=== PATIENT | male | born 1985 | race Caucasian/White ===

== ENCOUNTER 2018-07-20 14:09 | Outpatient (RCR) | payer OTHER ==
[~2018-07-20 14:09] MED LIST: DOXYCYCLINE 10100 MG PO; NORCO 325 MG-51 TAB PO; PROCTOFOAM-HC 11 FOA RC; PROZAC 20MG20 MG PO
== END 2018-08-17 10:24 | disposition home or self-care (01) ==
LOC: WSOH 14:09
DX: S13.4XXA Sprain of ligaments of cervical spine, initial encounter (principal); S33.6XXA Sprain of sacroiliac joint, initial encounter; S33.5XXA Sprain of ligaments of lumbar spine, initial encounter; Z88.0 Allergy status to penicillin; X50.0XXA Overexertion from strenuous movement or load, initial encounter; Y92.59 Other trade areas as the place of occurrence of the external cause; Y99.0 Civilian activity done for income or pay; F32.9 Major depressive disorder, single episode, unspecified; F41.9 Anxiety disorder, unspecified

== ENCOUNTER 2021-09-26 15:31 | Emergency (ER) | payer SELFPAY ==
[~2021-09-26] VITALS: Ht 167.6 cm; Wt 79.5 kg
[2021-09-26 16:15] LABS: COLLECTION METHOD CLEAN CATCH
[2021-09-26 16:24] LABS: SQUAMOUS EPITHELIAL 0-2 /hpf (0-10); URINE BACTERIA None Seen /hpf (NONE SEEN); URINE RBC 0-2 /hpf (0-2)
[2021-09-26 16:25] LABS: PH 5 (5-8); URINE APPEARANCE Clear (CLEAR/HAZY); URINE BLOOD Negative (NEGATIVE); URINE COLOR Yellow (YELLOW); URINE GLUCOSE Negative (NEGATIVE); URINE KETONE Negative (NEGATIVE); URINE NITRATE Negative (NEGATIVE); URINE PROTEIN(semi-quant) Negative (NEGATIVE); URINE UROBILINOGEN Negative (NEGATIVE)
[2021-09-26 16:37] LABS: BASO % 0.3 % (0.0-2.0); EOS # 0.1 K/mm3 (0.0-0.7); EOS % 1.7 % (0.0-4.0); GRAN # 5.2 K/mm3 (1.4-6.5); GRAN % 78.4 % (42.2-75.2); HEMATOCRIT 44.5 % (42.0-52.0); HEMOGLOBIN 15.7 g/dl (13.5-18.0); LYMPH # 0.7 K/mm3 (1.2-3.4); LYMPH % 10.6 % (20.0-51.0); MEAN CELL VOLUME 87 fl (80.0-100.0); MEAN CORPUSCULAR HEMOGLOBIN 31 pg (27-31); MEAN CORPUSCULAR HGB CONC 35 g/dl (33.0-37.0); MEAN PLATELET VOLUME 8.4 fl (7.4-10.4); MONO # 0.6 K/mm3 (0.1-0.6); MONO % 8.8 % (1.7-9.3); PLATELET COUNT 222 K/mm3 (130-400); RED BLOOD COUNT 5.09 M/mm3 (4.20-5.60); REDCELL DISTRIBUTION WIDTH-CV 12.5 % (11.5-14.5)
[2021-09-26 16:48] LABS: ALBUMIN 4.6 gm/dL (3.5-5.0); BILIRUBIN,TOTAL 0.9 mg/dL (0.2-1.2); CALCIUM 9.7 mg/dL (8.4-10.2); CREATININE, serum 1.11 mg/dL (0.72-1.25); POTASSIUM 3.7 mmol/L (3.5-4.5); TOTAL PROTEIN 7.8 gm/dL (6.2-8.1)
[2021-09-26] MEDS ORDERED: PRILOSEC 20MG20 MG PO (17:26)
[2021-09-26 18:05] VITALS: BP 129/78; PULSE 84; TEMP 98.3
== END 2021-09-26 18:05 | disposition home or self-care (01) ==
LOC: COL.ER 15:31
PROVIDERS: Emergency Medicine
DX: R10.13 Epigastric pain (principal); R10.11 Right upper quadrant pain
CPT/HCPCS: J7030

== ENCOUNTER 2022-04-21 00:38 | Emergency (ER) | payer SELFPAY ==
[~2022-04-21] VITALS: Ht 167.6 cm; Wt 77.3 kg
[~2022-04-21 00:38] MED LIST changes: +PRILOSEC 20MG20 MG PO
[2022-04-21 00:57] VITALS: TEMP 98.3
[2022-04-21] MEDS ORDERED: ZITHROMAX 250M250 MG PO (04:10)
[2022-04-21] MEDS ORDERED: TESSALON P100 MG/CAP PO (04:10)
[2022-04-21] MEDS ORDERED: AMOXICILLIN 50500 MG PO (04:10)
[2022-04-21 04:58] VITALS: BP 120/78; PULSE 76
== END 2022-04-21 04:58 | disposition home or self-care (01) ==
LOC: COL.ER 00:38
DX: J18.9 Pneumonia, unspecified organism (principal); Z88.0 Allergy status to penicillin; Z28.310 Unvaccinated for COVID-19; Z20.822 Contact with and (suspected) exposure to COVID-19
CPT/HCPCS: Q9967

== ENCOUNTER 2023-10-02 12:18 | Emergency (ER) | payer SELFPAY ==
[~2023-10-02] VITALS: Ht 167.6 cm; Wt 75.0 kg
[~2023-10-02 12:18] MED LIST changes: +AMOXICILLIN 50500 MG PO; +TESSALON P100 MG/CAP PO; +ZITHROMAX 250M250 MG PO
[2023-10-02 12:31] VITALS: BP 146/91; TEMP 98.1
[2023-10-02 13:06] VITALS: PULSE 65
== END 2023-10-02 13:10 | disposition home or self-care (01) ==
LOC: COL.ER 12:18
DX: S60.512A Abrasion of left hand, initial encounter (principal); W20.8XXA Other cause of strike by thrown, projected or falling object, initial encounter; Y92.89 Other specified places as the place of occurrence of the external cause; Y99.0 Civilian activity done for income or pay